=== PATIENT | male | born 1960 | race African-American/Black ===

== ENCOUNTER 2017-08-09 07:17 | Outpatient (CLI) | payer BC ==
[2017-08-09] MEDS ORDERED: Iopamidol 370 76% 100 ML VIAL ONE (14:24)
== END 2017-08-09 07:18 | disposition home or self-care (01) ==
LOC: BICCT 07:17
PROVIDERS: ATTEND Family Medicine
DX: R22.0 Localized swelling, mass and lump, head (principal)
CPT/HCPCS: 70491

== ENCOUNTER 2017-08-23 07:47 | Outpatient (CLI) | payer BC | END 2017-08-23 07:48 | disposition home or self-care (01) | LOC: BICMRI 07:47 | PROVIDERS: ATTEND Family Medicine | DX: M12.811 Other specific arthropathies, not elsewhere classified, right shoulder (principal); M75.101 Unspecified rotator cuff tear or rupture of right shoulder, not specified as traumatic ==

== ENCOUNTER 2018-07-03 08:33 | Outpatient (CLI) | payer BC ==
--- NOTE | 2018-07-03 11:35 | RAD ---
RIGHT SHOULDER ARHTROGRAM: INDICATION: Concern for rotator cuff tear. TECHNIQUE: Informed consent was obtained. 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 A sit e overlying the right glenohumeral joint was marked. The site was prepped and draped in the usual st erile fashion. Buffered 1% Lidocaine was administered to the overlying subcutaneous tissues. Under fluoroscopic guidance, a 22-gauge spinal needle was guided down into the glenohumeral joint. 8 cc of a dilute Gadolinium solution was administered into the glenohumeral joint. The patient tolerated th e injection without difficulty. Total fluoroscopic time is 0.4 minutes. Total exposure was 12.8 mGy *^m2. FINDINGS: There is mild right AC joint osteoarthrosis. No acute fracture or subluxation is evident. Visualize d right lung is clear. IMPRESSION: Successful right shoulder arthrogram. POS: [facility]
--- NOTE | 2018-07-03 13:26 | MRI ---
MR ARTHROGRAM OF THE RIGHT SHOULDER: INDICATION: Concern for rotator cuff tear. TECHNIQUE: Multiplanar, multisequence MR images were obtained of the right shoulder with intraarticular contrast . Please see the separately dictated right shoulder arthrogram for details concerning the injection technique. Comparisons are made with the prior MR of the right shoulder dated 08/23/2017. FINDINGS: There is moderate tendinosis of the supraspinatus tendon. There is mild undersurface irregularity in volving the anterior and mid aspect of the supraspinatus near the footprint. The prominent intrasubs tance tear involving greater than 50% of the tendon thickness is slightly more prominent than on the prior examination. The tear measures approximately 0.7 x 1 cm in its greatest mediolateral and AP di mensions respectively. No full thickness rotator cuff tear is evident. There is mild tendinosis of the infraspinatus. The teres minor and subscapularis are intact. The biceps tendon is located. The glenohumeral articular surface appears normal. The anterior inferior glenohumeral labral ligamentou s complex is intact. The biceps anchor is intact. There is mild AC joint osteoarthrosis which is st able. There is a type II acromion. No os acromiale is evident. No muscular atrophy is evident. IMPRESSION: 1. Enlarging intratendinous tear involving approximately 75% of the tendon thickness. This is a hig h-grade tear and has slightly enlarged since the prior examination. This involves the mid and industrial training specialist ior aspect of the supraspinatus tendon extending into the conjoined tendon. 2. Moderate tendinosis of the subscapularis and mild infraspinatus tendinosis. POS: [facility]
== END 2018-07-03 08:34 | disposition home or self-care (01) ==
LOC: RAD 08:33
PROVIDERS: ATTEND Orthopaedic Surgery
DX: M75.111 Incomplete rotator cuff tear or rupture of right shoulder, not specified as traumatic (principal); M75.91 Shoulder lesion, unspecified, right shoulder
CPT/HCPCS: 23350

== ENCOUNTER → 2019-01-03 | Day surgery (SDC) | payer BC ==
[~2019-01-03] MED LIST: Acetaminophen 1,000 MG in Premix Bag 1 BAG IVPB SCH; Adacel (T-DAP) 0.5 ML SYRINGE ONE; Bupivacaine HCl 0.5%/Epinephrine 1:200,000/PF 30 ml Vial ONE; Bupivacaine PF 0.5% 30 ML VIAL ONE; Dexamethasone 20 MG/5 ML VIAL ONE; Dextrose 5% in Water 1,000 ML IV PRN; Dextrose 50% Abboject 50 ML SYRINGE SLOW IVP PRN; Famotidine/PF 20 mg/2ml Vial SLOW IVP SCH; Fentanyl 100 MCG/2 ML VIAL ONE; Ketorolac Tromethamine 30 MG/ML VIAL IVP SCH; Ketorolac Tromethamine 30 MG/ML VIAL ONE; Lidocaine 1% PF 5 ML VIAL ONE; Midazolam HCl 2 mg/2 ml Vial ONE; Morphine 2 MG/ML SYRINGE SLOW IVP PRN; Morphine 4 MG/ML VIAL ONE; Neomycin-Polymyxin 1 ML AMP ONE; Ondansetron ODT 4 MG TAB PO PRN; Ondansetron PF 4 MG/2 ML Vial IVP PRN; Ondansetron PF 4 MG/2 ML Vial ONE; PHENYLEPHRINE-NS 100 MCG/ML 10 ML SYRINGE ONE; PROPOFOL 200 MG/20 ML VIAL ONE; Rocuronium Bromide 10 MG/ML (10ML VIAL) ONE; Senokot S 8.6-50 MG TAB PO SCH; Sodium Chloride 0.9% 1,000 ML IV SCH; Succinylcholine Chloride 20 MG/ML 10 ml SYRINGE FS ONE; hydrALAZINE 20 MG/ML VIAL SLOW IVP PRN; traMADol HCl 50 MG TAB PO PRN; traMADol HCl 50 MG TAB PO SCH
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
[2019-01-03 15:15] LABS: #Eosinphils 0.1 thou/uL (0.0-0.7); #Lymphocytes 3.6 thou/uL (1.20-3.40); #Monocytes 0.7 thou/uL (0.11-0.59); #Neutrophils 4.5 thou/uL (1.40-6.50); %Basophils 0.2 % (0.0-1.0); %Eosinophils 0.8 % (0.0-10.0); %Lymphocytes 40.2 % (21.0-51.0); %Monocytes 7.8 % (0.0-10.0); %Neutrophils 50.9 % (42.0-75.0); Hemoglobin 15.5 g/dL (14.0-18.0); Mean Corpuscular HGB CONC 33.2 g/dL (32.0-36.0); Mean Corpuscular Hemoglobin 29.3 pg (27.0-31.0); Mean Corpuscular Volume 88.1 fL (78.0-98.0); Mean Platelet Volume 8.9 fL (7.4-10.4); Platelet Count 194 thou/uL (130-400); RBC Distribution Width 12.6 % (11.5-14.5); Red Blood Cell (RBC) Count 5.28 mill/uL (4.70-6.10); White Blood Cell (WBC) Count 8.8 thou/uL (4.8-10.8)
[2019-01-03 15:21] LABS: INR-International Normal Ratio 1.3; PTT 26.4 SEC (22.9-36.1); Prothrombin Time 15.7 SEC (12.0-14.7)
[2019-01-03 15:33] LABS: ALT (SGPT) 44 U/L (8-55); AST (SGOT) 43 U/L (5-34); Albumin 4.4 g/dL (3.5-5.0); Alkaline Phosphatase 47 U/L (40-150); Anion Gap 15 mmol/L (10-20); BUN (Urea Nitrogen) 25 mg/dL (8.4-25.7); Bilirubin, Total 0.5 mg/dL (0.2-1.2); CK (CPK) 1400 U/L (30-200); Calc. Creatinine Clearance 0 mL/min (70-130); Calcium 9.7 mg/dL (7.8-10.44); Carbon Dioxide 22 mmol/L (22-29); Chloride 104 mmol/L (98-107); Estimated GFR-MDRD Greater than 90; Globulin 3.5 g/dL (2.4-3.5); Glucose 106 mg/dL (70-105); Potassium 3.7 mmol/L (3.5-5.1); Protein, Total 7.9 g/dL (6.0-8.3); Sodium 137 mmol/L (136-145)
--- NOTE | 2019-01-03 20:32 | RAD ---
LEFT FINGER THREE VIEWS: 01/03/19 HISTORY: Fracture of left index finger FINDINGS/IMPRESSION: Three spot fluoroscopic intraoperative images of the left index finger demonstrates external pinning and stabilization of the comminuted fracture of the proximal phalanx since earlier exam of same date (2:48 p.m.). POS: [facility]
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
== END ==
LOC: ERS 14:48 → SDC 15:30
PROVIDERS: ATTEND Orthopaedic Surgery
PROC: 0PSV34Z Reposition Left Finger Phalanx with Internal Fixation Device, Percutaneous Approach (ICD-10-PCS; principal; 2019-01-03)
PROC: 0PU Upper Bones, Supplement (ICD-10-PCS; principal; 2019-01-03)
PROC: 0LQ80ZZ Repair Left Hand Tendon, Open Approach (ICD-10-PCS; principal; 2019-01-03)
DX: S62.611B Displaced fracture of proximal phalanx of left index finger, initial encounter for open fracture (principal); S66.321A Laceration of extensor muscle, fascia and tendon of left index finger at wrist and hand level, initial encounter; G89.11 Acute pain due to trauma; J32.9 Chronic sinusitis, unspecified; Z79.899 Other long term (current) drug therapy; Z96.642 Presence of left artificial hip joint; Z98.1 Arthrodesis status; W32.0XXA Accidental handgun discharge, initial encounter
CPT/HCPCS: 36415; 71045; 76000; 80053; 82550; 83605; 85025; 85610; 85730; 86850; 86900; 86901; 90471; 90715; 93005; 96365; 96375; J0670; J0690; J1100; J1885; J2001; J2250; J2270; J2405; J2704; J3010; Q4049; S0020

== ENCOUNTER 2021-01-11 04:45 | Inpatient (IN) | payer BC ==
[2021-01-11] MEDS ORDERED: Iopamidol 370 76% 50 ML VIAL FS ONE (09:18)
[2021-01-11] MEDS ORDERED: Iopamidol 370 76% 100 ML VIAL ONE (09:18)
[2021-01-11] MEDS ORDERED: hydrALAZINE 20 MG/ML VIAL SLOW IVP PRN (12:07)
[2021-01-11] MEDS ORDERED: Labetalol HCl 100 MG/20 ML VIAL SLOW IVP PRN (12:07)
[2021-01-11] MEDS ORDERED: Enoxaparin Sodium 40 MG/0.4 ML SYRINGE SC SCH (12:15)
[2021-01-11] MEDS ORDERED: Aspirin 300 MG Suppository PR SCH (12:15)
[2021-01-11] MEDS ORDERED: Aspirin 300 MG Suppository ONE ×2 (12:54→12:56)
[2021-01-11] MEDS ORDERED: Enoxaparin Sodium 40 MG/0.4 ML SYRINGE ONE (12:56)
[2021-01-11] MEDS: Dextrose 5 %-0.45 % NaCl 1,000 ML IV SCH (17:27)
[2021-01-11 17:57] LABS: Anion Gap 9 mmol/L (10-20); BUN (Urea Nitrogen) 11 mg/dL (8.4-25.7); Calc. Creatinine Clearance 110 mL/min (70-130); Calcium 8.4 mg/dL (7.8-10.44); Carbon Dioxide 27 mmol/L (22-29); Chloride 104 mmol/L (98-107); Glucose 94 mg/dL (70-105); Magnesium 1.7 mg/dL (1.6-2.6); Potassium 3.5 mmol/L (3.5-5.1); Sodium 136 mmol/L (136-145)
[2021-01-11] MEDS ORDERED: Famotidine 20 MG TAB PO SCH (21:00)
[2021-01-11] MEDS ORDERED: Rosuvastatin 20 MG TAB PO SCH (21:00)
[2021-01-11] MEDS: Famotidine/PF 20 mg/2ml Vial SLOW IVP SCH (21:16)
[2021-01-11] MEDS ORDERED: Chloraseptic Spray 180 ml Bottle PO PRN (22:32)
[2021-01-12] MEDS: Dextrose 5 %-0.45 % NaCl 1,000 ML IV SCH ×3 (01:56→18:11)
[2021-01-12 06:19] LABS: #Lymphocytes 2.2 thou/uL (1.20-3.40); #Monocytes 0.5 thou/uL (0.11-0.59); #Neutrophils 3.9 thou/uL (1.40-6.50); %Basophils 0.5 % (0.0-1.0); %Eosinophils 0.3 % (0.0-10.0); %Lymphocytes 32.9 % (21.0-51.0); %Monocytes 7.3 % (0.0-10.0); Hemoglobin 14.3 g/dL (14.0-18.0); Mean Corpuscular HGB CONC 31.9 g/dL (32.0-36.0); Mean Corpuscular Volume 90.8 fL (78.0-98.0); Mean Platelet Volume 8.6 fL (7.4-10.4); Platelet Count 188 thou/uL (130-400); RBC Distribution Width 12.3 % (11.5-14.5); Red Blood Cell (RBC) Count 4.94 mill/uL (4.70-6.10); White Blood Cell (WBC) Count 6.7 thou/uL (4.8-10.8)
[2021-01-12 06:44] LABS: Anion Gap 8 mmol/L (10-20); BUN (Urea Nitrogen) 8 mg/dL (8.4-25.7); Calc. Creatinine Clearance 114 mL/min (70-130); Calcium 8.6 mg/dL (7.8-10.44); Carbon Dioxide 28 mmol/L (22-29); Cardiac Risk 2.7 (Less than 4.5); Chloride 103 mmol/L (98-107); Cholesterol 157 mg/dl (< 200 Desired); Glucose 101 mg/dL (70-105); HDL Cholesterol 59 mg/dL (>60 Neg Risk); LDL Cholesterol, Calculated 84 mg/dL; Potassium 3.7 mmol/L (3.5-5.1); Sodium 135 mmol/L (136-145); Triglycerides 70 mg/dL (Less than 150)
[2021-01-12] MEDS: Enoxaparin Sodium 40 MG/0.4 ML SYRINGE SC SCH (10:33)
[2021-01-12] MEDS: Famotidine/PF 20 mg/2ml Vial SLOW IVP SCH ×2 (10:33→22:11)
[2021-01-12] MEDS: Aspirin 300 MG Suppository PR SCH (10:33)
[2021-01-12] MEDS: Morphine 2 MG/ML VIAL SLOW IVP PRN ×3 (11:15→22:11)
[2021-01-12] MEDS ORDERED: Ketorolac Tromethamine 30 MG/ML VIAL IVP SCH (16:45)
[2021-01-13] MEDS: Dextrose 5 %-0.45 % NaCl 1,000 ML IV SCH ×2 (05:23→10:08)
[2021-01-13] MEDS ORDERED: Ketorolac Tromethamine 30 MG/ML VIAL IVP PRN (09:52)
[2021-01-13] MEDS: Famotidine/PF 20 mg/2ml Vial SLOW IVP SCH ×2 (10:10→20:31)
[2021-01-13] MEDS: Enoxaparin Sodium 40 MG/0.4 ML SYRINGE SC SCH (10:11)
[2021-01-13] MEDS: Aspirin 300 MG Suppository PR SCH (10:11)
[2021-01-13] MEDS: Prochlorperazine 10 MG/2 ML VIAL IVP PRN (13:14)
[2021-01-13 16:03] LABS: ANA Symphony (Qualitative) Negative (Negative); ANA Symphony (Quantitative) 0.2 Ratio (< 0.7 Negative); CCP IgG Antibody 1.7 EliAU/mL (<7 Negative); EliA RAS New Method **** NEW METHOD ****; Rheumatoid Factor IgA Antibody 2.3 IU/mL (<14 Negative); Rheumatoid Factor IgM Antibody 1.5 IU/mL (<3.5 Negative); dsDNA IgG Antibody 0.8 IU/mL (<10 Negative)
[2021-01-13] MEDS: D5W-AA 4.25% with LYTES 1,000 ML IV SCH (17:43)
[2021-01-13] MEDS: diphenhydrAMINE 50 MG/ML VIAL IVP PRN (18:18)
[2021-01-13] MEDS ORDERED: Chloraseptic Spray 180 ml Bottle PO PRN (18:19)
[2021-01-14] MEDS: diphenhydrAMINE 50 MG/ML VIAL IVP PRN ×2 (00:34→18:07)
[2021-01-14] MEDS: Morphine 2 MG/ML VIAL SLOW IVP PRN ×3 (00:49→20:54)
[2021-01-14 04:55] LABS: #Lymphocytes 2.1 thou/uL (1.20-3.40); #Monocytes 0.7 thou/uL (0.11-0.59); #Neutrophils 4.6 thou/uL (1.40-6.50); %Basophils 0.4 % (0.0-1.0); %Eosinophils 0.3 % (0.0-10.0); %Lymphocytes 28.2 % (21.0-51.0); %Monocytes 9.6 % (0.0-10.0); %Neutrophils 61.5 % (42.0-75.0); Hemoglobin 14.8 g/dL (14.0-18.0); Mean Corpuscular HGB CONC 32.8 g/dL (32.0-36.0); Mean Corpuscular Hemoglobin 29.4 pg (27.0-31.0); Mean Corpuscular Volume 89.5 fL (78.0-98.0); Mean Platelet Volume 8.6 fL (7.4-10.4); Platelet Count 188 thou/uL (130-400); Red Blood Cell (RBC) Count 5.05 mill/uL (4.70-6.10); White Blood Cell (WBC) Count 7.6 thou/uL (4.8-10.8)
[2021-01-14 05:09] LABS: Anion Gap 10 mmol/L (10-20); BUN (Urea Nitrogen) 13 mg/dL (8.4-25.7); Calc. Creatinine Clearance 101 mL/min (70-130); Calcium 8.9 mg/dL (7.8-10.44); Carbon Dioxide 27 mmol/L (22-29); Chloride 103 mmol/L (98-107); Glucose 106 mg/dL (70-105); Potassium 3.8 mmol/L (3.5-5.1); Sodium 136 mmol/L (136-145)
[2021-01-14] MEDS: Prochlorperazine 10 MG/2 ML VIAL IVP PRN ×2 (06:29→18:09)
[2021-01-14] MEDS: D5W-AA 4.25% with LYTES 1,000 ML IV SCH ×2 (09:04→23:41)
[2021-01-14] MEDS: Enoxaparin Sodium 40 MG/0.4 ML SYRINGE SC SCH (09:07)
[2021-01-14] MEDS: Famotidine/PF 20 mg/2ml Vial SLOW IVP SCH ×2 (09:08→20:01)
[2021-01-14] MEDS: Aspirin 300 MG Suppository PR SCH (09:08)
[2021-01-14 12:34] LABS: Bacteria/HPF None Seen HPF (None Seen); Bilirubin Negative (Negative); Blood, Urine Trace (Negative); Clarity Clear (Clear); Glucose, Urine (Dipstick) Normal (Negative); Ketone, Urine 10 mg/dL (Negative); Leukocyte Negative Leu/uL (Negative); Nitrite Negative (Negative); Protein, Urine (Dipstick) 10 mg/dL (Neg-Trace); RBC/HPF 0-3 HPF (0-3); Specific Gravity, Urine 1.028 (1.002-1.036); Squamous Epithelial None Seen HPF (0-3); Urobilinogen Normal mg/dL (Less than 2); WBC/HPF 0-3 HPF (0-3); pH, Urine 5.5 (5.0-9.0)
[2021-01-14 17:54] LABS: Sodium 134 mmol/L (136-145)
[2021-01-14] MEDS ORDERED: Sodium Chloride 3% 500 ML IVPB SCH (18:45)
[2021-01-15] MEDS: Enoxaparin Sodium 40 MG/0.4 ML SYRINGE SC SCH (10:26)
[2021-01-15] MEDS: Aspirin 300 MG Suppository PR SCH (10:27)
[2021-01-15] MEDS: Prochlorperazine 10 MG/2 ML VIAL IVP PRN (10:27)
[2021-01-15] MEDS: diphenhydrAMINE 50 MG/ML VIAL IVP PRN (10:27)
[2021-01-15] MEDS: Famotidine/PF 20 mg/2ml Vial SLOW IVP SCH ×2 (10:27→21:22)
[2021-01-15 10:59] LABS: Anion Gap 11 mmol/L (10-20); BUN (Urea Nitrogen) 17 mg/dL (8.4-25.7); Calc. Creatinine Clearance 109 mL/min (70-130); Calcium 8.4 mg/dL (7.8-10.44); Carbon Dioxide 26 mmol/L (22-29); Chloride 105 mmol/L (98-107); Glucose 105 mg/dL (70-105); Sodium 138 mmol/L (136-145)
[2021-01-15] MEDS: Morphine 2 MG/ML VIAL SLOW IVP PRN ×2 (11:25→16:28)
[2021-01-15] MEDS: D5W-AA 4.25% with LYTES 1,000 ML IV SCH (14:58)
[2021-01-15 17:19] LABS: SARS-CoV-2 PCR by NAA Not Detected (NotDetected)
[2021-01-15] MEDS ORDERED: Sodium Chloride 256 MEQ in Sterile Water Injection 936 ML IV SCH (18:00)
[2021-01-15 18:39] LABS: Anion Gap 11 mmol/L (10-20); BUN (Urea Nitrogen) 15 mg/dL (8.4-25.7); Calc. Creatinine Clearance 113 mL/min (70-130); Calcium 8.3 mg/dL (7.8-10.44); Carbon Dioxide 25 mmol/L (22-29); Chloride 104 mmol/L (98-107); Glucose 92 mg/dL (70-105); Sodium 136 mmol/L (136-145)
[2021-01-15] MEDS: manNITOL 20% 500 ML IVPB SCH (20:33)
[2021-01-15] MEDS ORDERED: ADMIXTURE FEE IV SCH (21:00)
[2021-01-15] MEDS ORDERED: MANNITOL IV SCH (21:00)
[2021-01-15] MEDS: Sodium Chloride 256 MEQ in Sterile Water Injection 936 ML IV SCH (21:27)
[2021-01-15 23:15] LABS: Anion Gap 12 mmol/L (10-20); BUN (Urea Nitrogen) 14 mg/dL (8.4-25.7); Calc. Creatinine Clearance 109 mL/min (70-130); Calcium 8.5 mg/dL (7.8-10.44); Carbon Dioxide 24 mmol/L (22-29); Chloride 104 mmol/L (98-107); Glucose 96 mg/dL (70-105); Potassium 4.2 mmol/L (3.5-5.1); Sodium 136 mmol/L (136-145)
[2021-01-16 04:17] LABS: #Eosinphils 0.1 thou/uL (0.0-0.7); #Monocytes 0.7 thou/uL (0.11-0.59); #Neutrophils 5.5 thou/uL (1.40-6.50); %Basophils 0.4 % (0.0-1.0); %Eosinophils 0.9 % (0.0-10.0); %Lymphocytes 23.8 % (21.0-51.0); %Monocytes 8.5 % (0.0-10.0); %Neutrophils 66.5 % (42.0-75.0); Hemoglobin 14.9 g/dL (14.0-18.0); Mean Corpuscular HGB CONC 32.9 g/dL (32.0-36.0); Mean Corpuscular Hemoglobin 29.9 pg (27.0-31.0); Mean Corpuscular Volume 90.8 fL (78.0-98.0); Platelet Count 181 thou/uL (130-400); RBC Distribution Width 12.2 % (11.5-14.5); Red Blood Cell (RBC) Count 4.98 mill/uL (4.70-6.10); White Blood Cell (WBC) Count 8.2 thou/uL (4.8-10.8)
[2021-01-16] MEDS: Morphine 2 MG/ML VIAL SLOW IVP PRN (04:23)
[2021-01-16 04:39] LABS: Anion Gap 14 mmol/L (10-20); BUN (Urea Nitrogen) 13 mg/dL (8.4-25.7); Calc. Creatinine Clearance 109 mL/min (70-130); Calcium 8.4 mg/dL (7.8-10.44); Carbon Dioxide 23 mmol/L (22-29); Chloride 104 mmol/L (98-107); Glucose 88 mg/dL (70-105); Potassium 4.4 mmol/L (3.5-5.1); Sodium 137 mmol/L (136-145)
[2021-01-16] MEDS ORDERED: Enoxaparin Sodium 40 MG/0.4 ML SYRINGE ONE (09:06)
[2021-01-16] MEDS ORDERED: Famotidine/PF 20 mg/2ml Vial ONE (09:07)
[2021-01-16] MEDS: Famotidine/PF 20 mg/2ml Vial SLOW IVP SCH ×2 (09:22→21:19)
[2021-01-16] MEDS: Enoxaparin Sodium 40 MG/0.4 ML SYRINGE SC SCH (09:22)
[2021-01-16] MEDS: Aspirin 300 MG Suppository PR SCH (09:23)
[2021-01-16] MEDS: Sodium Chloride 256 MEQ in Sterile Water Injection 936 ML IV SCH (09:25)
[2021-01-16] MEDS: manNITOL 20% 500 ML IVPB SCH ×2 (09:46→21:21)
[2021-01-16 10:04] LABS: Anion Gap 15 mmol/L (10-20); BUN (Urea Nitrogen) 15 mg/dL (8.4-25.7); Calc. Creatinine Clearance 108 mL/min (70-130); Calcium 8.5 mg/dL (7.8-10.44); Carbon Dioxide 21 mmol/L (22-29); Chloride 107 mmol/L (98-107); Glucose 94 mg/dL (70-105); Potassium 4.1 mmol/L (3.5-5.1); Sodium 139 mmol/L (136-145)
[2021-01-16] MEDS ORDERED: SODIUM CHLORIDE IV SCH (10:30)
[2021-01-16] MEDS ORDERED: Sterile Water 0 ML ONE (11:02)
[2021-01-16] MEDS ORDERED: Sodium Chloride 0.9% 10 ML ONE (11:03)
[2021-01-16] MEDS ORDERED: Acetaminophen 650 MG Suppository PR PRN (11:59)
[2021-01-16 14:46] LABS: Anion Gap 12 mmol/L (10-20); BUN (Urea Nitrogen) 14 mg/dL (8.4-25.7); Calc. Creatinine Clearance 113 mL/min (70-130); Calcium 8.9 mg/dL (7.8-10.44); Carbon Dioxide 23 mmol/L (22-29); Chloride 107 mmol/L (98-107); Glucose 95 mg/dL (70-105); Potassium 4.3 mmol/L (3.5-5.1); Sodium 138 mmol/L (136-145)
[2021-01-16] MEDS: SODIUM CHLORIDE IV SCH ×2 (15:29→23:29)
[2021-01-16] MEDS: Pantoprazole 40 MG VIAL IVP SCH (21:19)
[2021-01-17 07:15] LABS: Anion Gap 13 mmol/L (10-20); BUN (Urea Nitrogen) 14 mg/dL (8.4-25.7); Calc. Creatinine Clearance 125 mL/min (70-130); Calcium 8.6 mg/dL (7.8-10.44); Carbon Dioxide 22 mmol/L (22-29); Chloride 110 mmol/L (98-107); Glucose 97 mg/dL (70-105); Potassium 3.9 mmol/L (3.5-5.1); Sodium 141 mmol/L (136-145)
[2021-01-17] MEDS ORDERED: Enoxaparin Sodium 40 MG/0.4 ML SYRINGE ONE (09:26)
[2021-01-17] MEDS ORDERED: Sodium Chloride 0.9% 50 ML ONE (09:27)
[2021-01-17] MEDS: Enoxaparin Sodium 40 MG/0.4 ML SYRINGE SC SCH (09:29)
[2021-01-17] MEDS: manNITOL 20% 500 ML IVPB SCH ×2 (09:31→20:43)
[2021-01-17] MEDS: Pantoprazole 40 MG VIAL IVP SCH ×2 (09:32→20:42)
[2021-01-17 09:55] LABS: ALT (SGPT) 15 U/L (8-55); AST (SGOT) 20 U/L (5-34); Albumin 3.4 g/dL (3.5-5.0); Alkaline Phosphatase 45 U/L (40-110); Bilirubin, Direct 0.3 mg/dL (0.1-0.3); Bilirubin, Total 0.7 mg/dL (0.2-1.2); Protein, Total 6.3 g/dL (6.0-8.3)
[2021-01-17] MEDS: Aspirin 300 MG Suppository PR SCH (10:10)
[2021-01-17] MEDS: Famotidine/PF 20 mg/2ml Vial SLOW IVP SCH ×2 (13:36→20:42)
[2021-01-18] MEDS: SODIUM CHLORIDE IV SCH ×2 (01:48→22:53)
[2021-01-18 04:12] LABS: #Lymphocytes 1.3 thou/uL (1.20-3.40); #Monocytes 0.7 thou/uL (0.11-0.59); #Neutrophils 5.3 thou/uL (1.40-6.50); %Basophils 0.5 % (0.0-1.0); %Eosinophils 0.5 % (0.0-10.0); %Lymphocytes 17.3 % (21.0-51.0); %Monocytes 9.5 % (0.0-10.0); %Neutrophils 72.2 % (42.0-75.0); Hemoglobin 13.5 g/dL (14.0-18.0); Mean Corpuscular HGB CONC 33.2 g/dL (32.0-36.0); Mean Corpuscular Hemoglobin 30.1 pg (27.0-31.0); Mean Corpuscular Volume 90.6 fL (78.0-98.0); Mean Platelet Volume 8.8 fL (7.4-10.4); Platelet Count 188 thou/uL (130-400); Red Blood Cell (RBC) Count 4.48 mill/uL (4.70-6.10); White Blood Cell (WBC) Count 7.3 thou/uL (4.8-10.8)
[2021-01-18 05:46] LABS: ALT (SGPT) 13 U/L (8-55); AST (SGOT) 21 U/L (5-34); Albumin 3.3 g/dL (3.5-5.0); Alkaline Phosphatase 41 U/L (40-110); Anion Gap 14 mmol/L (10-20); BUN (Urea Nitrogen) 14 mg/dL (8.4-25.7); Bilirubin, Total 0.7 mg/dL (0.2-1.2); Calc. Creatinine Clearance 125 mL/min (70-130); Calcium 8.3 mg/dL (7.8-10.44); Carbon Dioxide 20 mmol/L (22-29); Chloride 112 mmol/L (98-107); Globulin 2.9 g/dL (2.4-3.5); Glucose 88 mg/dL (70-105); Protein, Total 6.2 g/dL (6.0-8.3); Sodium 142 mmol/L (136-145)
[2021-01-18 06:56] LABS: Anion Gap 13 mmol/L (10-20); BUN (Urea Nitrogen) 14 mg/dL (8.4-25.7); Calc. Creatinine Clearance 122 mL/min (70-130); Calcium 8.5 mg/dL (7.8-10.44); Carbon Dioxide 22 mmol/L (22-29); Chloride 114 mmol/L (98-107); Glucose 98 mg/dL (70-105); Potassium 3.9 mmol/L (3.5-5.1); Sodium 145 mmol/L (136-145)
[2021-01-18] MEDS: manNITOL 20% 500 ML IVPB SCH (10:12)
[2021-01-18] MEDS: Enoxaparin Sodium 40 MG/0.4 ML SYRINGE SC SCH (10:12)
[2021-01-18] MEDS: Famotidine/PF 20 mg/2ml Vial SLOW IVP SCH ×2 (10:12→21:57)
[2021-01-18] MEDS: Aspirin 300 MG Suppository PR SCH (10:13)
[2021-01-18] MEDS: Pantoprazole 40 MG VIAL IVP SCH ×2 (10:13→21:57)
[2021-01-18] MEDS ORDERED: Acetaminophen 650 MG Suppository PR PRN (22:56)
[2021-01-19 04:38] LABS: Anion Gap 13 mmol/L (10-20); BUN (Urea Nitrogen) 15 mg/dL (8.4-25.7); Calc. Creatinine Clearance 124 mL/min (70-130); Calcium 8.5 mg/dL (7.8-10.44); Carbon Dioxide 21 mmol/L (22-29); Chloride 114 mmol/L (98-107); Glucose 98 mg/dL (70-105); Potassium 3.6 mmol/L (3.5-5.1); Sodium 144 mmol/L (136-145)
[2021-01-19] MEDS ORDERED: MANNITOL IV SCH (09:00)
[2021-01-19] MEDS ORDERED: ADMIXTURE FEE IV SCH (09:00)
[2021-01-19] MEDS: Sodium Chloride 0.9% 1,000 ML IV SCH ×2 (10:17→17:59)
[2021-01-19] MEDS: manNITOL 20% 500 ML IVPB SCH (10:17)
[2021-01-19] MEDS: Enoxaparin Sodium 40 MG/0.4 ML SYRINGE SC SCH (10:18)
[2021-01-19] MEDS: Pantoprazole 40 MG VIAL IVP SCH ×2 (10:19→20:38)
[2021-01-19] MEDS: Famotidine/PF 20 mg/2ml Vial SLOW IVP SCH (10:19)
[2021-01-19] MEDS: Aspirin 300 MG Suppository PR SCH (10:30)
[2021-01-19] MEDS: Acetaminophen 325 MG TAB PO PRN (20:38)
[2021-01-20] MEDS: Sodium Chloride 0.9% 1,000 ML IV SCH (09:39)
[2021-01-20] MEDS: Aspirin 325 MG TAB PO SCH (09:47)
[2021-01-20] MEDS: Enoxaparin Sodium 40 MG/0.4 ML SYRINGE SC SCH (09:47)
[2021-01-20] MEDS: Pantoprazole 40 MG VIAL IVP SCH ×2 (09:48→21:27)
[2021-01-20] MEDS: Acetaminophen 325 MG TAB PO PRN ×2 (10:00→18:22)
[2021-01-20] MEDS: manNITOL 20% 500 ML IVPB SCH (11:29)
[2021-01-20] MEDS: Acetaminophen/Codeine 30-300mg Tablet PO PRN (21:26)
[2021-01-20] MEDS: Atorvastatin Calcium 40 MG TAB PO SCH (21:27)
[2021-01-21] MEDS: Aspirin 325 MG TAB PO SCH (09:02)
[2021-01-21] MEDS: Acetaminophen/Codeine 30-300mg Tablet PO PRN ×3 (09:02→22:33)
[2021-01-21] MEDS: Enoxaparin Sodium 40 MG/0.4 ML SYRINGE SC SCH (09:03)
[2021-01-21] MEDS: Pantoprazole 40 MG VIAL IVP SCH ×2 (11:00→22:34)
[2021-01-21] MEDS: manNITOL 20% 500 ML IVPB SCH (13:56)
[2021-01-21] MEDS ORDERED: Nystatin 500,000 UNITS/5 ML UDCUP SSW SCH (17:00)
[2021-01-21 18:20] LABS: #Eosinphils 0.1 thou/uL (0.0-0.7); #Monocytes 0.4 thou/uL (0.11-0.59); #Neutrophils 3.2 thou/uL (1.40-6.50); %Basophils 0.3 % (0.0-1.0); %Eosinophils 2.2 % (0.0-10.0); %Lymphocytes 34.9 % (21.0-51.0); %Monocytes 6.4 % (0.0-10.0); %Neutrophils 56.2 % (42.0-75.0); Hemoglobin 14.3 g/dL (14.0-18.0); Mean Corpuscular HGB CONC 32.9 g/dL (32.0-36.0); Mean Corpuscular Hemoglobin 29.5 pg (27.0-31.0); Mean Corpuscular Volume 89.6 fL (78.0-98.0); Mean Platelet Volume 8.5 fL (7.4-10.4); Platelet Count 209 thou/uL (130-400); RBC Distribution Width 11.7 % (11.5-14.5); Red Blood Cell (RBC) Count 4.84 mill/uL (4.70-6.10); White Blood Cell (WBC) Count 5.7 thou/uL (4.8-10.8)
[2021-01-21 18:42] LABS: Anion Gap 11 mmol/L (10-20); BUN (Urea Nitrogen) 10 mg/dL (8.4-25.7); Calc. Creatinine Clearance 116 mL/min (70-130); Calcium 8.2 mg/dL (7.8-10.44); Carbon Dioxide 25 mmol/L (22-29); Chloride 103 mmol/L (98-107); Glucose 90 mg/dL (70-105); Sodium 135 mmol/L (136-145)
[2021-01-21] MEDS: Senokot S 8.6-50 MG TAB PO SCH (22:33)
[2021-01-21] MEDS: Atorvastatin Calcium 40 MG TAB PO SCH (22:33)
[2021-01-22] MEDS ORDERED: Ibuprofen 200 MG TAB PO PRN (01:16)
[2021-01-22] MEDS: Senokot S 8.6-50 MG TAB PO SCH ×2 (10:08→22:10)
[2021-01-22] MEDS: Pantoprazole 40 MG VIAL IVP SCH ×2 (10:08→22:11)
[2021-01-22] MEDS: Aspirin 325 MG TAB PO SCH (10:09)
[2021-01-22] MEDS: Enoxaparin Sodium 40 MG/0.4 ML SYRINGE SC SCH (10:09)
[2021-01-22] MEDS: Atorvastatin Calcium 40 MG TAB PO SCH (22:10)
[2021-01-23] MEDS: Aspirin 325 MG TAB PO SCH (09:44)
[2021-01-23] MEDS: Pantoprazole 40 MG VIAL IVP SCH (09:45)
[2021-01-23] MEDS: Senokot S 8.6-50 MG TAB PO SCH ×2 (09:46→21:41)
[2021-01-23] MEDS: Enoxaparin Sodium 40 MG/0.4 ML SYRINGE SC SCH (09:46)
[2021-01-23] MEDS: Acetaminophen 325 MG TAB PO PRN (09:54)
[2021-01-23 09:56] VITALS: BMI 25.2
[2021-01-23] MEDS ORDERED: Polyethylene Glycol 3350 17 GM Packet PO PRN (13:33)
[2021-01-23] MEDS ORDERED: Polyethylene Glycol 3350 17 GM Packet PO SCH (15:15)
[2021-01-23 15:54] LABS: SARS-CoV-2 PCR by NAA Not Detected (NotDetected)
[2021-01-23] MEDS: Morphine IR 10 MG/5 ML UDCUP PO PRN ×2 (17:18→21:41)
[2021-01-23] MEDS ORDERED: Docusate 100 MG CAP PO SCH (21:00)
[2021-01-23] MEDS: Atorvastatin Calcium 40 MG TAB PO SCH (21:41)
[2021-01-24 09:07] LABS: Anion Gap 11 mmol/L (10-20); BUN (Urea Nitrogen) 15 mg/dL (8.4-25.7); Calc. Creatinine Clearance 107 mL/min (70-130); Calcium 8.5 mg/dL (7.8-10.44); Carbon Dioxide 27 mmol/L (22-29); Chloride 103 mmol/L (98-107); Glucose 99 mg/dL (70-105); Potassium 4.2 mmol/L (3.5-5.1); Sodium 137 mmol/L (136-145)
[2021-01-24] MEDS: Enoxaparin Sodium 40 MG/0.4 ML SYRINGE SC SCH (10:23)
[2021-01-24] MEDS: Polyethylene Glycol 3350 17 GM Packet PO SCH (10:24)
[2021-01-24] MEDS: Aspirin 325 MG TAB PO SCH (10:24)
[2021-01-24] MEDS: Senokot S 8.6-50 MG TAB PO SCH ×2 (10:24→22:09)
[2021-01-24] MEDS: Morphine IR 10 MG/5 ML UDCUP PO PRN (10:25)
[2021-01-24 10:51] LABS: ALT (SGPT) 27 U/L (8-55); AST (SGOT) 38 U/L (5-34); Albumin 3.1 g/dL (3.5-5.0); Alkaline Phosphatase 48 U/L (40-110); Bilirubin, Direct 0.2 mg/dL (0.1-0.3); Bilirubin, Total 0.4 mg/dL (0.2-1.2); Protein, Total 6.2 g/dL (6.0-8.3)
[2021-01-24] MEDS ORDERED: Gabapentin 300 MG CAP PO SCH (11:00)
[2021-01-24] MEDS: Morphine 2 MG/ML VIAL SLOW IVP PRN (14:31)
[2021-01-24] MEDS: Acetaminophen/Codeine 30-300mg Tablet PO PRN (18:34)
[2021-01-24] MEDS: Gabapentin 300 MG CAP PO SCH (22:09)
[2021-01-24] MEDS: Atorvastatin Calcium 40 MG TAB PO SCH (22:10)
[2021-01-25 07:17] LABS: Anion Gap 14 mmol/L (10-20); BUN (Urea Nitrogen) 14 mg/dL (8.4-25.7); Calc. Creatinine Clearance 115 mL/min (70-130); Calcium 8.8 mg/dL (7.8-10.44); Carbon Dioxide 24 mmol/L (22-29); Chloride 101 mmol/L (98-107); Glucose 102 mg/dL (70-105); Potassium 4.3 mmol/L (3.5-5.1); Sodium 135 mmol/L (136-145)
[2021-01-25] MEDS: Aspirin 325 MG TAB PO SCH (09:58)
[2021-01-25] MEDS: Enoxaparin Sodium 40 MG/0.4 ML SYRINGE SC SCH (09:58)
[2021-01-25] MEDS: Senokot S 8.6-50 MG TAB PO SCH (09:58)
[2021-01-25] MEDS: Polyethylene Glycol 3350 17 GM Packet PO SCH (09:58)
[2021-01-25] MEDS: Gabapentin 300 MG CAP PO SCH (09:59)
[2021-01-25] MEDS: Morphine 2 MG/ML VIAL SLOW IVP PRN (10:17)
[2021-01-25] MEDS ORDERED: Bisacodyl 10 MG SUPP PR SCH (11:45)
[2021-01-25 11:59] VITALS: TEMP 98.9
[2021-01-25 13:58] VITALS: BP 158/99
[2021-01-25] MEDS: Acetaminophen/Codeine 30-300mg Tablet PO PRN (14:24)
== END 2021-01-25 15:20 | DRG 64 ==
LOC: ERS 04:45 → ERHOLD 07:18 → 3SE 14:52 → CCU 01-15 23:08 → PACU-TCU 01-16 05:55 → IMCU/EMU 01-17 15:18 → 3SE 01-20 00:02
PROVIDERS: ADMIT Family Medicine; ATTEND Internal Medicine
PROC: 0DH67UZ Insertion of Feeding Device into Stomach, Via Natural or Artificial Opening (ICD-10-PCS; principal; 2021-01-14)
DX: I63.411 Cerebral infarction due to embolism of right middle cerebral artery (principal); G93.5 Compression of brain; G93.6 Cerebral edema; I63.231 Cerebral infarction due to unspecified occlusion or stenosis of right carotid arteries; G81.94 Hemiplegia, unspecified affecting left nondominant side; I47.2 Ventricular tachycardia; I42.0 Dilated cardiomyopathy; E87.1 Hypo-osmolality and hyponatremia; Z20.822 Contact with and (suspected) exposure to COVID-19; R29.715 NIHSS score 15; I44.0 Atrioventricular block, first degree; H53.47 Heteronymous bilateral field defects; R47.01 Aphasia; R13.10 Dysphagia, unspecified; G93.2 Benign intracranial hypertension; I10 Essential (primary) hypertension; Z96.642 Presence of left artificial hip joint; R29.810 Facial weakness; R47.1 Dysarthria and anarthria; Z79.52 Long term (current) use of systemic steroids; Z79.899 Other long term (current) drug therapy; Z90.49 Acquired absence of other specified parts of digestive tract; Z98.1 Arthrodesis status
CPT/HCPCS: 0042T; 36415; 36416; 70450; 70496; 70551; 74230; 80048; 80053; 80061; 80076; 81001; 83090; 83520; 83735; 83880; 84443; 85025; 85652; 86038; 86200; 86225; 93306; A4217; C9113; J0780; J1200; J1650; J1885; J2270; J7042; J7050; J7131; J7799; Q9967; S0028; U0003; U0005

== ENCOUNTER 2021-06-27 22:38 | Emergency (ER) | payer BC ==
[2021-06-27 23:42] LABS: #Eosinphils 0.1 thou/uL (0.0-0.7); #Lymphocytes 1.8 thou/uL (1.20-3.40); #Monocytes 0.3 thou/uL (0.11-0.59); #Neutrophils 1.5 thou/uL (1.40-6.50); %Eosinophils 2.2 % (0.0-10.0); %Lymphocytes 48.7 % (21.0-51.0); %Monocytes 7.2 % (0.0-10.0); %Neutrophils 40.9 % (42.0-75.0); Hemoglobin 13.1 g/dL (14.0-18.0); Mean Corpuscular HGB CONC 32.5 g/dL (32.0-36.0); Mean Corpuscular Hemoglobin 30.4 pg (27.0-31.0); Mean Corpuscular Volume 93.4 fL (78.0-98.0); Platelet Count 160 thou/uL (130-400); RBC Distribution Width 11.8 % (11.5-14.5); Red Blood Cell (RBC) Count 4.31 mill/uL (4.70-6.10); White Blood Cell (WBC) Count 3.8 thou/uL (4.8-10.8)
[2021-06-28 00:01] LABS: ALT (SGPT) 71 U/L (8-55); AST (SGOT) 37 U/L (5-34); Albumin 3.9 g/dL (3.5-5.0); Alkaline Phosphatase 61 U/L (40-110); Anion Gap 16 mmol/L (10-20); BUN (Urea Nitrogen) 18 mg/dL (8.4-25.7); Bilirubin, Total 0.3 mg/dL (0.2-1.2); Calc. Creatinine Clearance 0 mL/min (70-130); Calcium 9.3 mg/dL (7.8-10.44); Carbon Dioxide 24 mmol/L (22-29); Chloride 104 mmol/L (98-107); Globulin 3.2 g/dL (2.4-3.5); Glucose 114 mg/dL (70-105); Potassium 3.7 mmol/L (3.5-5.1); Protein, Total 7.1 g/dL (6.0-8.3); Sodium 140 mmol/L (136-145)
[2021-06-28 00:09] LABS: Acetaminophen Less than 6.0 mcg/mL (10.0-30.0); Alcohol Less than 10 mg/dL (Less than 10); Salicylate Less than 8.0 mg/dL (15.0-30.0)
[2021-06-28 02:07] LABS: Bilirubin Negative (Negative); Blood, Urine Negative (Negative); Clarity Clear (Clear); Glucose, Urine (Dipstick) Normal (Negative); Ketone, Urine Trace mg/dL (Negative); Leukocyte Negative Leu/uL (Negative); Nitrite Negative (Negative); Protein, Urine (Dipstick) 20 mg/dL (Neg-Trace); Specific Gravity, Urine 1.029 (1.002-1.036); Urobilinogen Normal mg/dL (Less than 2); pH, Urine 5.5 (5.0-9.0)
== END 2021-06-28 03:07 | disposition home or self-care (01) ==
LOC: ERS 22:38
DX: R41.82 Altered mental status, unspecified (principal); Z79.899 Other long term (current) drug therapy; I10 Essential (primary) hypertension; Z86.73 Personal history of transient ischemic attack (TIA), and cerebral infarction without residual deficits
CPT/HCPCS: 36415; 70450; 71045; 80053; 80307; 81003; 84443; 84484; 85025; 87040; 87086; 93005

== ENCOUNTER 2022-07-05 12:27 | Outpatient (CLI) | payer BC | END 2022-07-05 12:28 | disposition home or self-care (01) | LOC: SLEEPLAB 12:27 | PROVIDERS: ATTEND Internal Medicine Critical Care Medicine | DX: G47.33 Obstructive sleep apnea (adult) (pediatric) (principal); R53.83 Other fatigue; R06.83 Snoring; R35.1 Nocturia; I63.9 Cerebral infarction, unspecified; I10 Essential (primary) hypertension; G47.10 Hypersomnia, unspecified | CPT/HCPCS: 95800 ==

== ENCOUNTER 2022-12-06 19:00 | Outpatient (CLI) | payer BC | END 2022-12-06 19:01 | disposition home or self-care (01) | LOC: SLEEPLAB 19:00 | PROVIDERS: ATTEND Internal Medicine Critical Care Medicine | DX: G47.10 Hypersomnia, unspecified (principal); R53.83 Other fatigue; R06.83 Snoring; R35.1 Nocturia; I63.9 Cerebral infarction, unspecified; I10 Essential (primary) hypertension; F32.A Depression, unspecified; G47.00 Insomnia, unspecified; Z68.25 Body mass index [BMI] 25.0-25.9, adult | CPT/HCPCS: 95810 ==

== ENCOUNTER 2022-12-31 13:51 | Outpatient (CLI) | payer BC ==
[~2022-12-31 13:51] MED LIST changes: -Acetaminophen 1,000 MG in Premix Bag 1 BAG IVPB SCH; -Adacel (T-DAP) 0.5 ML SYRINGE ONE; -Bupivacaine HCl 0.5%/Epinephrine 1:200,000/PF 30 ml Vial ONE; -Bupivacaine PF 0.5% 30 ML VIAL ONE; -Dexamethasone 20 MG/5 ML VIAL ONE; -Dextrose 5% in Water 1,000 ML IV PRN; -Dextrose 50% Abboject 50 ML SYRINGE SLOW IVP PRN; -Famotidine/PF 20 mg/2ml Vial SLOW IVP SCH; -Fentanyl 100 MCG/2 ML VIAL ONE; +Iopamidol 370 76% 100 ML VIAL ONE; -Ketorolac Tromethamine 30 MG/ML VIAL IVP SCH; -Ketorolac Tromethamine 30 MG/ML VIAL ONE; -Lidocaine 1% PF 5 ML VIAL ONE; -Midazolam HCl 2 mg/2 ml Vial ONE; -Morphine 2 MG/ML SYRINGE SLOW IVP PRN; -Morphine 4 MG/ML VIAL ONE; -Neomycin-Polymyxin 1 ML AMP ONE; -Ondansetron ODT 4 MG TAB PO PRN; -Ondansetron PF 4 MG/2 ML Vial IVP PRN; -Ondansetron PF 4 MG/2 ML Vial ONE; -PHENYLEPHRINE-NS 100 MCG/ML 10 ML SYRINGE ONE; -PROPOFOL 200 MG/20 ML VIAL ONE; -Rocuronium Bromide 10 MG/ML (10ML VIAL) ONE; -Senokot S 8.6-50 MG TAB PO SCH; -Sodium Chloride 0.9% 1,000 ML IV SCH; -Succinylcholine Chloride 20 MG/ML 10 ml SYRINGE FS ONE; -hydrALAZINE 20 MG/ML VIAL SLOW IVP PRN; -traMADol HCl 50 MG TAB PO PRN; -traMADol HCl 50 MG TAB PO SCH
== END 2022-12-31 13:52 | disposition home or self-care (01) ==
LOC: CT 13:51
PROVIDERS: ATTEND Surgery
DX: M79.89 Other specified soft tissue disorders (principal)
CPT/HCPCS: 82565; Q9967

== ENCOUNTER 2023-04-09 07:58 | Outpatient (CLI) | payer BC ==
[2023-04-09 09:55] LABS: Bilirubin Neg (Negative); Blood, Urine Negative (Negative); Glucose, Urine (Dipstick) Normal (Negative); Ketone, Urine Negative (Negative); Leukocyte Negative (Negative); Nitrite Negative (Negative); Protein, Urine (Dipstick) 15 mg/dl (Neg-Trace); Urobilinogen Normal mg/dL (Less than 2)
[2023-04-09 09:57] LABS: Clarity Clear (Clear)
[2023-04-09 10:00] LABS: #Eosinphils 0.1 10x3/uL (0.0-0.5); #Monocytes 0.3 10x3/uL (0.0-1.1); #Neutrophils 1.5 10x3/uL (1.5-8.4); %Basophils 0.9 % (0.0-2.0); %Eosinophils 3.8 % (0.0-6.0); %Lymphocytes 44.9 % (18.0-47.0); %Monocytes 8.1 % (0.0-10.0); Hematocrit 51.7 % (38.8-50.0); Hemoglobin 16.9 g/dL (13.5-17.5); Mean Corpuscular HGB CONC 32.7 g/dL (32.0-36.0); Mean Corpuscular Hemoglobin 29.3 pg (27.0-33.0); Mean Corpuscular Volume 89.6 fl (81.2-95.1); Mean Platelet Volume 11.3 fl (7.4-10.4); Platelet Count 186 10x3/uL (150-450); RBC Distribution Width 13.2 % (11.5-14.5); Red Blood Cell (RBC) Count 5.77 10x6/uL (4.32-5.72); White Blood Cell (WBC) Count 3.5 10x3/uL (3.5-10.5)
[2023-04-09 10:23] LABS: ALT (SGPT) 32 U/L (8-55); AST (SGOT) 34 U/L (5-34); Albumin 3.8 g/dL (3.5-5.0); Alkaline Phosphatase 37 U/L (40-110); Anion Gap 12 mmol/L (10-20); BUN (Urea Nitrogen) 14 mg/dL (8.4-25.7); Bilirubin, Total 0.6 mg/dL (0.2-1.2); Calc. Creatinine Clearance 0 mL/min (70-130); Calcium 8.8 mg/dL (7.8-10.44); Carbon Dioxide 25 mmol/L (22-29); Chloride 104 mmol/L (98-107); Cholesterol 195 mg/dl (< 200 Desired); Estimated GFR 81; Globulin 3.1 g/dL (2.4-3.5); Glucose 77 mg/dL (70-105); HDL Cholesterol 64 mg/dL (>60 Neg Risk); LDL Cholesterol, Calculated 123 mg/dL; Potassium 4.2 mmol/L (3.5-5.1); Protein, Total 6.9 g/dL (6.0-8.3); Sodium 137 mmol/L (136-145); Triglycerides 41 mg/dL (Less than 150)
[2023-04-09 14:18] LABS: PSA-Asymptomatic (SCREENING) 1.99 ng/mL (0-4.0); Vitamin D, 25 Hydroxy 29.8 ng/ml (> 30.0)
== END 2023-04-09 07:59 | disposition home or self-care (01) ==
LOC: LABBT 07:58
PROVIDERS: ATTEND Surgery
DX: Z01.818 Encounter for other preprocedural examination (principal); M79.89 Other specified soft tissue disorders
CPT/HCPCS: 80053; 80061; 81003; 82306; 84443; 85025; 93005; 93010; G0103

== ENCOUNTER 2023-04-18 06:30 | Day surgery (SDC) | payer BC ==
[2023-04-09 08:26] VITALS: BMI 27.2
[2023-04-18] MEDS ORDERED: Bupivacaine 0.25% HCL 30 ML VIAL ONE (06:55)
[2023-04-18] MEDS ORDERED: EPINEPHrine 1 MG/ML VIAL ONE (06:55)
[2023-04-18] MEDS ORDERED: fentaNYL PF 100 MCG/2 ML SYRINGE ONE ×2 (07:00→07:57)
[2023-04-18] MEDS ORDERED: PROPOFOL 40 ML ONE (07:00)
[2023-04-18] MEDS ORDERED: Lidocaine 1% PF 5 ML VIAL ONE ×3 (07:02→08:20)
[2023-04-18] MEDS ORDERED: Ondansetron PF 4 MG/2 ML Vial ONE ×3 (07:02→12:11)
[2023-04-18] MEDS ORDERED: Dexamethasone 4 mg/ml Vial ONE (07:02)
[2023-04-18] MEDS ORDERED: CEFAZOLIN 2 GM VIAL ONE (07:12)
[2023-04-18] MEDS ORDERED: Sodium Chloride 0.9% 100 ML ONE (07:12)
[2023-04-18] MEDS ORDERED: PHENYLEPHRINE-NS 100 MCG/ML 10 ML SYRINGE ONE ×3 (07:35→08:05)
[2023-04-18] MEDS ORDERED: Glycopyrrolate 0.2 MG/ML 5 ML SYRINGE ONE ×3 (07:45→12:04)
[2023-04-18] MEDS ORDERED: PROPOFOL 200 MG/20 ML VIAL ONE (07:45)
[2023-04-18] MEDS ORDERED: Dexamethasone 20 MG/5 ML VIAL ONE ×2 (07:45→12:12)
[2023-04-18] MEDS ORDERED: ePHEDrine Sulfate 50 MG/10 ML VIAL ONE ×2 (07:59→11:58)
[2023-04-18] MEDS ORDERED: SUGAMMADEX SODIUM 200 MG/2 ML VIAL ONE (12:03)
== END 2023-04-18 11:20 | disposition home or self-care (01) ==
LOC: SDC 06:30
PROVIDERS: ATTEND Surgery
PROC: 0HBLXZZ Excision of Left Lower Leg Skin, External Approach (ICD-10-PCS; principal; 2023-04-18)
DX: M79.89 Other specified soft tissue disorders (principal); M19.90 Unspecified osteoarthritis, unspecified site; N52.9 Male erectile dysfunction, unspecified; J32.9 Chronic sinusitis, unspecified; F15.90 Other stimulant use, unspecified, uncomplicated; Z96.649 Presence of unspecified artificial hip joint; Z98.52 Vasectomy status; Z90.89 Acquired absence of other organs
CPT/HCPCS: 88304; J0171; J1100; J2405; J2704; J3490; S0020

== ENCOUNTER 2024-06-11 20:02 | Emergency (ER) | payer BC ==
[2024-06-11 20:28] LABS: #Basophils 0.04 10x3/uL (0.0-0.2); %Basophils 0.8 % (0.0-1.0); %Eosinophils 3.2 % (0.0-10.0); %Lymphocytes 44.8 % (21.0-51.0); %Monocytes 7.8 % (0.0-10.0); %Neutrophils 43.2 % (42.0-75.0); Hematocrit 50.2 % (42.0-52.0); Hemoglobin 16.7 g/dL (14.0-18.0); Mean Corpuscular HGB CONC 33.3 g/dL (32.0-36.0); Mean Corpuscular Hemoglobin 29.8 pg (27.0-31.0); Mean Corpuscular Volume 89.5 fL (78.0-98.0); Platelet Count 192 10x3/uL (130-400); RBC Distribution Width 13.3 % (11.5-14.5); Red Blood Cell (RBC) Count 5.61 mill/uL (4.70-6.10)
[2024-06-11 20:42] LABS: INR-International Normal Ratio 1.3; PTT 31.3 sec (22.9-36.1); Prothrombin Time 16.4 sec (12.0-14.7)
[2024-06-11 20:48] LABS: ALT (SGPT) 31 U/L (Less than 45); AST (SGOT) 46 U/L (11-34); Albumin 3.7 g/dL (3.1-4.5); Alkaline Phosphatase 45 U/L (40-110); Anion Gap 13 mmol/L (10-20); BUN (Urea Nitrogen) 21 mg/dL (8.4-25.7); Bilirubin, Total 0.4 mg/dL (0.3-1.2); Calc. Creatinine Clearance 0 mL/min (70-130); Calcium 9.1 mg/dL (7.8-10.44); Carbon Dioxide 24 mmol/L (23-31); Chloride 103 mmol/L (98-107); Estimated GFR 95; Glucose 97 mg/dL (80-115); Potassium 4.5 mmol/L (3.5-5.1); Protein, Total 7.7 g/dL (5.8-8.1); Sodium 135 mmol/L (136-145)
[2024-06-11 20:50] LABS: Troponin I Less than 0.010 ng/mL (< 0.028)
[2024-06-11 21:10] LABS: Bacteria/HPF None Seen HPF (None Seen); Bilirubin Negative (Negative); Blood, Urine Negative (Negative); CAUTI Indications for Culture Alt mental st,lethar; Clarity Clear (Clear); Glucose, Urine (Dipstick) Normal (Negative); Ketone, Urine Negative (Negative); Leukocyte Negative Leu/uL (Negative); Nitrite Negative (Negative); Protein, Urine (Dipstick) Negative (Neg-Trace); RBC/HPF 0-3 HPF (0-3); Specific Gravity, Urine 1.045 (1.002-1.036); Squamous Epithelial 0-3 HPF (0-3); Urobilinogen Normal mg/dL (Less than 2); WBC/HPF 0-3 HPF (0-3)
[2024-06-11 21:15] LABS: Urine Culture Reflex No No
== END 2024-06-11 21:49 | disposition home or self-care (01) ==
LOC: ERS 20:02
DX: G40.409 Other generalized epilepsy and epileptic syndromes, not intractable, without status epilepticus (principal); R29.702 NIHSS score 2; I10 Essential (primary) hypertension; Z86.73 Personal history of transient ischemic attack (TIA), and cerebral infarction without residual deficits; Z79.82 Long term (current) use of aspirin; Z79.899 Other long term (current) drug therapy
CPT/HCPCS: 36416; 70450; 70496; 70498; 71045; 80053; 81001; 84484; 85025; 85610; 85730; 93005; 94760

== ENCOUNTER 2025-02-16 14:21 | Outpatient (CLI) | payer BC | END 2025-02-16 14:22 | disposition home or self-care (01) | LOC: EEG 14:21 | PROVIDERS: ATTEND Family Medicine | DX: G40.909 Epilepsy, unspecified, not intractable, without status epilepticus (principal) | CPT/HCPCS: 95819 ==

== ENCOUNTER 2025-03-26 12:52 | Outpatient (CLI) | payer BC | END 2025-03-26 12:53 | disposition home or self-care (01) | LOC: BICMRI 12:52 | DX: G40.909 Epilepsy, unspecified, not intractable, without status epilepticus (principal); G93.89 Other specified disorders of brain; R90.89 Other abnormal findings on diagnostic imaging of central nervous system | CPT/HCPCS: 70551 ==